=== PATIENT | female | born 1985 | race African-American/Black ===

== ENCOUNTER 2018-03-28 18:42 | Emergency (ER) | payer MEDICAID ==
[~2018-03-28] VITALS: Ht 177.8 cm; Wt 77.0 kg
[2018-03-28 20:20] LABS: BASOPHILS % 0.7 % (0.0-2.0); EOSINOPHILS % 1.9 % (0.0-5.0); HEMOGLOBIN. 14.7 g/dL (12.0-16.0); LYMPHOCYTES % 45.4 % (20.0-50.0); MEAN CORPUSCULAR HEMOGLOBIN 31.4 pg (28.0-32.0); MEAN CORPUSCULAR VOLUME 94.1 fL (81.0-99.0); MEAN PLATELET VOLUME 8.9 fl (7.4-10.4); MONOCYTES % 9.3 % (2.0-8.0); NEUTROPHILS % 42.7 % (40.0-76.0); PLATELET 282 x1000/uL (130-400); RED BLOOD CELL COUNT 4.67 mill/uL (4.2-5.4); RED CELL DISTRIBUTION WIDTH 13.2 % (11.6-14.6)
[2018-03-28 20:27] LABS: CHLORIDE 105 mEq/L (98-107)
[2018-03-28 20:32] LABS: ETHANOL BLOOD < 10 mg/dL
[2018-03-28 21:08] LABS: CLARITY URINE CLEAR (CLEAR); COLOR URINE YELLOW (YELLOW); KETONES URINE TRACE (NEGATIVE); LEUKOCYTE ESTERASE URINE NEGATIVE (NEGATIVE); NITRITE URINE NEGATIVE (NEGATIVE); OCCULT BLOOD URINE NEGATIVE (NEGATIVE); PH URINE 6.5 (4.5-8.0); PROTEIN URINE NEGATIVE (NEGATIVE); SPECIFIC GRAVITY URINE 1.031 (1.005-1.030)
[2018-03-28 21:20] LABS: *AMPHETAMINES SCREEN URINE NEGATIVE (NEGATIVE); *BARBITURATES SCREEN URINE NEGATIVE (NEGATIVE); *BENZODIAZEPINES SCREEN URINE NEGATIVE (NEGATIVE); METHADONE URINE SCREEN NEGATIVE (NEGATIVE)
[2018-03-28 21:21] LABS: OPIATES URINE SCREEN NEGATIVE (NEGATIVE); PHENCYCLIDINE URINE SCREEN NEGATIVE (NEGATIVE)
[2018-03-28 21:32] LABS: *COCAINE SCREEN URINE PRESUMTIVE POSITIVE (NEGATIVE); CANNABINOID URINE SCREEN PRESUMTIVE POSITIVE (NEGATIVE)
[2018-03-29] MEDS ORDERED: ACETAMINOPHEN 500MG TABLET PO ONE (16:30)
[2018-03-29] MEDS ORDERED: LORAZEPAM 1MG TABLET PO ONE (18:30)
[2018-03-29 22:39] VITALS: BP 110/54
== END 2018-03-29 22:56 ==
LOC: ER 18:42
DX: F14.10 Cocaine abuse, uncomplicated (principal); R45.851 Suicidal ideations; F99 Mental disorder, not otherwise specified; F12.10 Cannabis abuse, uncomplicated; R20.0 Anesthesia of skin; G40.909 Epilepsy, unspecified, not intractable, without status epilepticus; Z98.890 Other specified postprocedural states; Z88.0 Allergy status to penicillin
CPT/HCPCS: 36415; 70450; 72125; 80053; 80305; 80307; 80329; 81003; 81025; 85025; 99285; G0482; Z7610